=== PATIENT | male | born 1960 | race Caucasian/White ===

== ENCOUNTER 2024-12-15 13:22 | Inpatient (IN) | payer OTHER, SELFPAY ==
[2024-12-15 13:31] VITALS: BP 148/93; PULSE 76; RESP 20; TEMP 37; O2SAT 97; BMI 46.2
--- NOTE | 2024-12-15 13:45 | PM.GSCN ---
History of Present Illness Consult details Date Seen: 12/15/24 Consult date: 12/15/24 Narrative: Patient presented to his primary care provider at the [facility] clinic with concerning redness and swelling of his right lower extremity. He 1st noticed redness about 3 days ago. He denies any significant pain to the area. With the redness getting worse it prompted him to come in. He does have a history of type 2 diabetes, hemoglobin A1c was last 7.3. He has had infections of the soft tissue in the past, but never in this area. He denies any trauma to the area. He owns a cat and does think that the cat scratched him on his legs earlier this week. Denies any fevers at home. Comorbidity of morbid obesity. Patient does have a history of a total knee replacement in 2019 on that right side with reported hardware in place. Review of Systems Status of ROS: Reports: 10 or more systems reviewed and unremarkable except as noted in History and below PFSH PFS Surgical History (Updated 07/24/22 @ 17:54 by Ina Shirley ~ [facility], [facility]) History of surgery (07/06/19) ?Z98.890 - Other specified postprocedural states (ICD-10) H/O inguinal hernia repair (~1979) ?Z98.890 - Other specified postprocedural states (ICD-10) ?Z87.19 - Personal history of other diseases of the digestive system (ICD-10) History of cholecystectomy (~1989) ?Z90.49 - Acquired absence of other specified parts of digestive tract (ICD-10) History of total right knee replacement (09/06/19) ?Z96.651 - Presence of right artificial knee joint (ICD-10) Family History (Updated 07/24/22 @ 17:55 by Ina Shirley ~ [facility], [facility]) Brother Diabetes Social History (Updated 07/30/22 @ 10:03 by Ina Shirley ~ [facility], [facility]) What is your current living situation?: I presently have a place to live Problems where you live: no known problems Problems where you live details: N/A In the past 12 months, utilities in danger of being shut off: no In past 12 months, lack of transportation kept you from medical appts, meetings, work, or getting things needed for daily living: no In the past 12 mos, have been you worried that your food would run out before you had money to buy more?: never true In the past 12 mos, the food you bought just didn't last and you didn't have money to buy more?: never true Highest level of school completed/degree received: Associate degree: occupational, technical, vocational program Smoking Status: Never smoker Do you use any of these nicotine containing products: None Second hand tobacco smoke exposure: No How often do you have a drink containing alcohol: never AUDIT-C Alcohol total score: 0 Non-prescribed substance use: denies use Caffeine: Yes How often does anyone, including family, friends and others, physically hurt you: never How often does anyone, including family, friends and others, insult or talk down to you: never How often does anyone, including family, friends and others, threaten you with harm: never How often does anyone, including family, friends and others, scream or curse at you: never service: No Meds Home Medications and Allergies Home Medications ?Medication ?Instructions ?Recorded ?Confirmed ?Type amoxicillin 500 mg capsule 2,000 mg PO ONCE prior to dental 07/24/22 12/15/24 History work atorvastatin 20 mg tablet 20 mg PO DAILY 07/24/22 12/15/24 History aspirin 81 mg tablet,delayed 81 mg PO DAILY 07/30/22 12/15/24 History release multivitamin 1 tab PO DAILY 07/30/22 12/15/24 History zinc sulfate 50 mg zinc (220 mg) 50 mg PO DAILY 07/30/22 07/30/22 History capsule insulin glargine 100 unit/mL (3 45 - 50 unit subcut QPM 12/15/24 12/15/24 History mL) subcutaneous pen (Lantus Solostar U-100 Insulin) insulin lispro-aabc 100 unit/mL 6 - 8 unit subcut QID 12/15/24 12/15/24 History subcutaneous pen (Lyumjev KwikPen U-100 Insulin) semaglutide 1 mg/dose (4 mg/3 mL) 1 mg subcut QWEEK 12/15/24 12/15/24 History subcutaneous pen injector (Ozempic) Allergies Allergy/AdvReac Type Severity Reaction Status Date / Time morphine Allergy burned Verified 07/30/22 10:06 throat Exam Narrative: Exam Narrative: General: Alert and oriented, no acute distress. Nontoxic Respiratory: Equal breath rise bilaterally, maintained on room air CV: Well perfused Extremities: Right lower extremity with swelling below the knee. Large area of erythema and induration on the anterior aspect of the gerard. Approximately 3 cm area of fluctuance noted, no active drainage or open areas. No swelling of the knee joint or pain with flexion and extension. Const: Vital Signs, click to edit/add: Vital Signs - 24 hr 12/15/24 13:31 Temperature 98.6 F Pulse Rate [Pulse Oximeter] 76 Respiratory Rate 20 Blood Pressure [Ri ght Arm] 148/93 H Pulse Oximetry 97 Oxygen Delivery Me thod Room Air Results Labs Labs: No new labs. Progress Note:A&P Assessment and plan (1) Cellulitis of right leg: Status: Acute Assessment and Plan: Patient with evidence of right lower extremity cellulitis, as well as associated hematoma and abscess. Ultrasound imaging was obtained at the [facility] clinic with 2 pretibial subcutaneous collections along the anterior aspect of the right calf. The fluid collections measure 6.4 cm (more solid in appearance and consistent with a hematoma) and 3.8 cm (concerning for abscess). The infection does not appear to involve the knee joint, but of note patient does have a history of a total knee replacement with hardware in place. He is at increased risk for severe infection and poor wound healing given his morbid obesity and type 2 diabetes. Recommend obtaining CBC, CMP and CRP. Start IV antibiotics, broad-spectrum. Will plan to take patient to the operating room tomorrow for incision and drainage of the leg. If there is evidence of extending erythema, swelling of the knee or increasing pain would recommend a CT scan and consider an orthopedic surgery consult. -IV antibiotics, Zosyn and vancomycin order -CBC, CMP and CRP -NPO at midnight
--- NOTE | 2024-12-15 14:55 | P.IMHP_ITS ---
Hospitalist- H&P: HPI History of Present Illness Date Seen: 12/15/24 Chief complaint: direct admit Narrative: Roque Sosa is a 64 year old male with IDDM2 who was directly admitted to the hospital or from the clinic today after presenting with right lower extremity edema and erythema. He started noting pain and edema to his right lower extremity on 12/11, followed by erythema over the area. No known injury or inciting incident, does have a cat but no obvious recent scratches. No fevers, no drainage. Hasn't been able to put on his compression socks 11/28 edema and discomfort. Saw PCP in clinic today, ultrasound obtained which demonstrated R calf cellulit is, two fluid collections concerning for abscess. Dr. Zuniga of General Surgery was consulted in clinic and recommended admission for IV antibiotics and surgical intervention 12/16/24. Histories updated below. Dr. Holland at [facility] is PCP. No history of anesthetic or surgical complications in the past. Review of Systems Narrative: - no fevers - no nausea or vomiting - no chest pain [facility] Medical History (Updated 12/15/24 @ 15:29 by Cristina Casey MD) Health care directive on file (08/31/19) ?Z78.9 - Other specified health status (ICD-10) Hypercholesteremia ?E78.00 - Pure hypercholesterolemia, unspecified (ICD-10) Osteoarthritis of left knee ?M17.12 - Unilateral primary osteoarthritis, left knee (ICD-10) Insulin dependent type 2 diabetes mellitus ?E11.9 - Type 2 diabetes mellitus without complications (ICD-10) ?Z79.4 - FPC (current) use of insulin (ICD-10) Surgical History (Updated 07/24/22 @ 17:54 by Ina Shirley ~ [facility], [facility]) History of surgery (07/06/19) ?Z98.890 - Other specified postprocedural states (ICD-10) H/O inguinal hernia repair (~1979) ?Z98.890 - Other specified postprocedural states (ICD-10) ?Z87.19 - Personal history of other diseases of the digestive system (ICD-10) History of cholecystectomy (~1989) ?Z90.49 - Acquired absence of other specified parts of digestive tract (ICD- 10) History of total right knee replacement (09/06/19) ?Z96.651 - Presence of right artificial knee joint (ICD-10) Family History (Updated 07/24/22 @ 17:55 by Ina Shirley ~ [facility], [facility]) Brother Diabetes Social History (Updated 12/15/24 @ 15:16 by Cristina Casey MD) Narrative: Lives independently, works in [employer] at [employer]. Nonsmoker, no ETOH use. Neighbor/friend Jacki Carey would be MDM if needed. Full Code status. What is your current living situation?: I presently have a place to live Problems where you live: no known problems Problems where you live details: N/A In the past 12 months, utilities in danger of being shut off: no In past 12 months, lack of transportation kept you from medical appts, meetings, work, or getting things needed for daily living: no In the past 12 mos, have been you worried that your food would run out before y ou had money to buy more?: never true In the past 12 mos, the food you bought just didn't last and you didn't have money to buy more?: never true Highest level of school completed/degree received: Associate degree: occupational, technical, vocational program Smoking Status: Never smoker Do you use any of these nicotine containing products: None Second hand tobacco smoke exposure: No How often do you have a drink containing alcohol: never AUDIT-C Alcohol total score: 0 Non-prescribed substance use: denies use Caffeine: Yes How often does anyone, including family, friends and others, physically hurt you : never How often does anyone, including family, friends and others, insult or talk down to you: never How often does anyone, including family, friends and others, threaten you with harm: never How often does anyone, including family, friends and others, scream or curse at you: never service: No Meds Home Medications and Allergies Home Medications ?Medication ?Instructions ?Recorded ?Confirmed ?Type amoxicillin 500 mg capsule 2,000 mg PO ONCE prior to dental 07/24/22 12/15/24 History work atorvastatin 20 mg tablet 20 mg PO DAILY 07/24/22 12/15/24 History aspirin 81 mg tablet,delayed 81 mg PO DAILY 07/30/22 12/15/24 History release multivitamin 1 tab PO DAILY 07/30/22 12/15/24 History zinc sulfate 50 mg zinc (220 mg) 50 mg PO DAILY 07/30/22 07/30/22 History capsule insulin glargine 100 unit/mL (3 45 - 50 unit subcut QPM 12/15/24 12/15/24 History mL) subcutaneous pen (Lantus Solostar U-100 Insulin) insulin lispro-aabc 100 unit/mL 6 - 8 unit subcut QID 12/15/24 12/15/24 History subcutaneous pen (Lyumjev KwikPen U-100 Insulin) semaglutide 1 mg/dose (4 mg/3 mL) 1 mg subcut QWEEK 12/15/24 12/15/24 History subcutaneous pen injector (Ozempic) Home Medication Comments: Takes Ozempic on Sundays, last dose was 12/05/24 (missed it 12/12/24) Takes 35-40U of Glargine pending BG, uses SSI for meals Has Freestyle Danielle for monitoring Allergies Allergy/AdvReac Type Severity Reaction Status Date / Time morphine Allergy burned Verified 07/30/22 10:06 throat Exam Narrative: Exam Narrative: GEN: Alert and oriented, nontoxic. Sitting comfortably in bedside chair and speaking in full sentences HEENT: EOMIs bilaterally, no scleral icterus CV: RRR, No concerning murmurs R: LCTA bilaterally without concerning wheezing Ext: Erythema + edema RLE, no open areas, no drainage. Superior aspect is indurated and fluctuant, + ttp. Erythema does not extend to the foot nor into the patellar region, outlined by nursing staff Skin: No other concerning skin lesions or rashes on exposed skin Neuro: Nonfocal Psych: Appropriate Const: Vital Signs, click to edit/add: Vital Signs - 24 hr 12/15/24 13:31 Temperature 98.6 F Pulse Rate [Pulse Oximeter] 76 Respiratory Rate 20 Blood Pressure [Ri ght Arm] 148/93 H Pulse Oximetry 97 Oxygen Delivery Me thod Room Air Assessment and Plan Assessment and plan (1) Cellulitis of right leg: Problem comment: - high risk for complications given IDDM2 and prosthetic joint - labs ordered including blood culture, initiate Zosyn and Vancomycin 12/15 - h/o R knee replacement, currently there is no clinical concern for involvement of this area, continue to follow - surgery 12/16, NPO at midnight Status: Acute (2) Insulin dependent type 2 diabetes mellitus: Problem comment: - last outpatient A1C 7.3, wears Freestyle Danielle - continue HS Glargine + SSI Status: Acute Plan - per above - requires inpatient admission given severe cellulitis + abscess, history of prosthetic joint proximal to infected area, and IDDM2 with high risk for complications - Full Code
[2024-12-15 15:00] VITALS: BP 144/64; PULSE 83; RESP 20; TEMP 36.9; O2SAT 96
[2024-12-15] MEDS: PIPERACILLIN/TAZOBACTAM 3.375 GM in 0.9 % SODIUM CHLORIDE Mini-bag 100 ML IVPB ×2 (15:04→20:15)
[2024-12-15 15:16] LABS: Basophils Absolute Auto 0.03 K/uL (0.00-0.30); Basophils Percent Auto 0.4 % (0.0-3.0); Eosinophils Absolute Auto 0.14 K/uL (0.00-0.50); Eosinophils Percent Auto 2.1 % (0.0-7.0); Hematocrit 38.9 % (37.0-53.0); Hemoglobin* 12.8 gm/dL (13.5-17.5); Immature Granulocytes Abs Auto 0.06 K/uL (0.00-0.30); Immature Granulocytes Pct Auto 0.9 %; Lymphocytes Absolute Auto 1.63 K/uL (0.90-2.90); Lymphocytes Percent Auto 24.4 % (20-44); Mean Corpuscular HGB Conc 33 gm/dL (32-36); Mean Corpuscular Hemoglobin 30 pg (26-34); Mean Corpuscular Volume 92 fL (80-100); Monocytes Percent Auto 8.4 % (0.0-11.0); Neutrophils Absolute Auto 4.26 K/uL (1.7-7.0); Neutrophils Percent Auto 63.8 % (42.0-72.0); Platelet Count* 242 K/uL (140-440); RDW Coefficient of Variation % 12.9 % (11.5-15.5); Red Blood Count 4.25 m/uL (4.30-5.90); White Blood Count* 6.68 K/uL (4.50-11.00)
[2024-12-15 15:18] LABS: Slide Review Reflex No
[2024-12-15 15:24] LABS: Albumin* 3.8 g/dL (3.3-5.0); Chloride* 99 mmol/L (96-114)
[2024-12-15 15:25] LABS: Potassium* 4.2 mmol/L (3.6-5.1); Sodium* 134 mmol/L (135-149)
[2024-12-15 15:27] LABS: Alkaline Phosphatase* 74 U/L (40-150); Anion Gap 10 mEq/L (7-15); Aspartate Amino Transferase* 23 U/L (12-35); Bilirubin Total* 0.7 mg/dL (0.1-1.5); Carbon Dioxide* 25 mmol/L (20-32); Creatinine* 0.8 mg/dL (0.5-1.5); Est. Creatinine Clearance* 90.37; Estimated Glomerular Filt Rate 99 ml/min; Total Protein* 6.4 g/dL (6.0-8.3)
[2024-12-15 15:28] LABS: Alanine Aminotransferase* 35 U/L (4-50); Blood Urea Nitrogen* 15 mg/dL (7-30); Calcium* 8.5 mg/dL (8.4-10.6); Glucose* 222 mg/dL (60-115)
[2024-12-15 15:30] LABS: C Reactive Protein* 3.9 mg/dL (0.5-1.0)
[2024-12-15] MEDS: VANCOMYCIN 2 GM/400 ML 2 GM/400 ML PIGGYBACK IVPB (16:00)
[2024-12-15] MEDS: 0.9 % SODIUM CHLORIDE 250 ml IV (16:00)
[2024-12-15] MEDS: INSULIN ASPART 100 UNIT/ML 14 UNIT SUBCUT (18:43)
[2024-12-15] MEDS: INSULIN GLARGINE,HUM.REC.ANLOG 100 UNIT/ML INSULN.PEN SUBCUT (18:45)
[2024-12-15] MEDS: INSULIN ASPART 100 UNIT/ML SUBCUT ×2 (18:46→21:05)
[2024-12-15 19:00] VITALS: BP 134/86; PULSE 93; RESP 18; TEMP 37; O2SAT 95
[2024-12-15] MEDS: SODIUM CHLORIDE 0.9 % (FLUSH) 10 ML SYRINGE 5 ML IVF (20:16)
[2024-12-15 23:00] VITALS: BP 158/93; PULSE 78; RESP 18; TEMP 37.2; O2SAT 98
[2024-12-16] VITALS (14 sets, daily range): BP systolic 115–145; BP diastolic 59–88; PULSE 63–85; RESP 12–19; TEMP 36.4–37.4; O2SAT 92–99
[2024-12-16] MEDS: PIPERACILLIN/TAZOBACTAM 3.375 GM in 0.9 % SODIUM CHLORIDE Mini-bag 100 ML IVPB ×4 (02:22→21:09)
--- NOTE | 2024-12-16 06:32 | PC.NURSE ---
End of shift: AxOx4, cooperative, pleasant. VSS on RA. Pt indep in room using bathroom. NPO began at midnight, tolerating well. Pt denies pain. LLE marked from previous nurse appears to be receding. Site is red and warm to touch. Pt able to sleep for majority of the shift. Pt appears resting with call light in reach.
[2024-12-16 06:48] LABS: Basophils Absolute Auto 0.04 K/uL (0.00-0.30); Basophils Percent Auto 0.6 % (0.0-3.0); Eosinophils Absolute Auto 0.19 K/uL (0.00-0.50); Hematocrit 38.5 % (37.0-53.0); Hemoglobin* 12.6 gm/dL (13.5-17.5); Immature Granulocytes Abs Auto 0.03 K/uL (0.00-0.30); Immature Granulocytes Pct Auto 0.5 %; Lymphocytes Absolute Auto 1.58 K/uL (0.90-2.90); Lymphocytes Percent Auto 24.5 % (20-44); Mean Corpuscular HGB Conc 33 gm/dL (32-36); Mean Corpuscular Hemoglobin 30 pg (26-34); Mean Corpuscular Volume 92 fL (80-100); Neutrophils Absolute Auto 4.02 K/uL (1.7-7.0); Neutrophils Percent Auto 62.4 % (42.0-72.0); Platelet Count* 260 K/uL (140-440); RDW Coefficient of Variation % 12.8 % (11.5-15.5); Red Blood Count 4.19 m/uL (4.30-5.90); White Blood Count* 6.44 K/uL (4.50-11.00)
[2024-12-16 06:52] LABS: Slide Review Reflex No
[2024-12-16 07:03] LABS: Chloride* 100 mmol/L (96-114); Sodium* 135 mmol/L (135-149)
[2024-12-16 07:06] LABS: Anion Gap 8 mEq/L (7-15); Blood Urea Nitrogen* 13 mg/dL (7-30); Carbon Dioxide* 27 mmol/L (20-32); Creatinine* 0.9 mg/dL (0.5-1.5); Est. Creatinine Clearance* 90.37; Estimated Glomerular Filt Rate 96 ml/min; Glucose* 137 mg/dL (60-115)
[2024-12-16 07:07] LABS: Calcium* 8.3 mg/dL (8.4-10.6)
[2024-12-16] MEDS: ATORVASTATIN CALCIUM 10 MG TABLET 20 MG PO (08:35)
[2024-12-16] MEDS: SODIUM CHLORIDE 0.9 % (FLUSH) 10 ML SYRINGE 5 ML IVF ×2 (08:36→21:09)
[2024-12-16] MEDS: VANCOMYCIN 1.5 GM/300 ML 1.5 GM/300 ML PIGGYBACK IVPB ×2 (09:24→22:16)
--- NOTE | 2024-12-16 10:32 | P.IMPN_ITS ---
Progress Note: A&P Assessment and plan (1) Cellulitis of right leg: Problem details: - high risk for complications given IDDM2 and prosthetic joint - labs ordered including blood culture -pending - continue Zosyn and Vancomycin 12/15 - h/o R knee replacement, currently there is no clinical concern for involvement of this area, continue to follow - to OR 12/[address] Zuniga for I&D, washout Status: Acute (2) Insulin dependent type 2 diabetes mellitus: Problem details: - last outpatient A1C 7.3, wears Freestyle Danielle, ok to use readings - hold tid Aspart as NPO - home dose Lantus is 40 units qPM, will decrease to 20 units tonight and adjust accordingly - insulin sliding scale, cautionary while NPO - also on Ozempic Status: Acute (3) Hypercholesteremia: Problem details: - on statin Status: Acute Time Spent With Patient Total time spent: Today I spent 45 minutes seeing the patient, discussing the patient with ER staff, reviewing Expanse and Epic notes/diagnostics, discussing the care plan with our team that includes social work, PT/OT, pharmacy, RT, senior care and documenting my impressions and plan in the medical record. Subjective Date Seen: 12/16/24 Interval history: Patient is seen sitting up in bed this morning. Reports no significant change overnight. Describes discomfort as more of an annoying. Specifically denies any knee, joint pain at rest, with palpation, with movement, or with weight- bearing. Remains afebrile. Vitally stable. Is NPO, awaiting surgery this afternoon. Exam Narrative: Exam Narrative: PHYSICAL EXAM General: Pleasant, conversant, NAD HEENT: Normocephalic, atraumatic, sclera white, EOMI, oral mucosa moist Cardiovascular: RRR, S1S2. No pitting edema Pulmonary: CTA bilaterally without rhonchi, rales, expiratory wheezes. No dyspnea Abdominal: Soft, nondistended, NTTP Neurological: Alert, answering questions appropriately, cranial nerves intact, no focal findings Extremities: RLE with bright, deep erythema/rubor. Significant edema. Tender over anterior lower leg. Full active range of motion of knee without pain, no tenderness on palpation over the joint. Neurovascularly intact Skin: Warm, dry. Const: Vital Signs, click to edit/add: Vital Signs - 24 hr 12/15/24 13:31 12/15/24 15:00 12/15/24 15:00 Temperature 98.6 F Pulse Rate [Pulse Oximeter] 76 Respiratory Rate 20 20 20 Blood Pressure [Ri ght Arm] 148/93 H Pulse Oximetry 97 96 Oxygen Delivery Me thod Room Air Room Air 12/15/24 15:00 12/15/24 19:00 12/15/24 23:00 Temperature 98.4 F 98.6 F Pulse Rate [Pulse Oximeter] 83 93 Respiratory Rate 20 18 18 Blood Pressure [Ri ght Arm] 144/64 H 134/86 Pulse Oximetry 96 95 98 Oxygen Delivery Me thod Room Air Room Air Room Air 12/15/24 23:00 12/16/24 02:31 12/16/24 07:40 Temperature 98.9 F 99 F Pulse Rate [Pulse Oximeter] 78 76 76 Respiratory Rate 18 18 18 Blood Pressure [Ri ght Arm] 158/93 H 130/76 Pulse Oximetry 98 95 Oxygen Delivery Me thod Room Air Room Air 12/16/24 07:40 12/16/24 07:40 Temperature 98.2 F Pulse Rate [Pulse Oximeter] 73 Respiratory Rate 18 18 Blood Pressure [Ri ght Arm] 115/78 Pulse Oximetry 96 96 Oxygen Delivery Me thod Room Air Room Air Labs Labs: Laboratory Results - last 24 hr 12/15/24 12/16/24 15:03 06:20 WBC 6.68 6.44 RBC 4.25 L 4.19 L Hgb 12.8 L 12.6 L Hct 38.9 38.5 MCV 92 92 MCH 30 30 MCHC 33 33 RDW Coeff of Yaw 12.9 12.8 Plt Count 242 260 Neut % (Auto) 63.8 62.4 Lymph % (Auto) 24.4 24.5 Kingfisher % (Auto) 8.4 9.0 Eos % (Auto) 2.1 3.0 Baso % (Auto) 0.4 0.6 Neut # (Auto) 4.26 4.02 Lymph # (Auto) 1.63 1.58 Kingfisher # (Auto) 0.60 0.60 Eos # (Auto) 0.14 0.19 Baso # (Auto) 0.03 0.04 Abs Immat Gran (auto) 0.06 0.03 Imm/Tot Granulo (auto) 0.9 0.5 Sodium 134 L 135 Potassium 4.2 4.0 Chloride 99 100 Carbon Dioxide 25 27 Anion Gap 10 8 BUN 15 13 Creatinine 0.8 0.9 Estimated Creat Clear 90.37 90.37 Estimated GFR 99 96 Glucose 222 H 137 H Calcium 8.5 8.3 L Total Bilirubin 0.7 AST 23 ALT 35 Alkaline Phosphatase 74 C-Reactive Protein 3.9 H Total Protein 6.4 Albumin 3.8
--- NOTE | 2024-12-16 13:11 | P.ANES_ITS ---
Anesthesia Charges Start Date/Time Anesthesia Start Date: 12/16/24 Anesthesia Start Time: 12:25 Stop Date/Time Anesthesia Stop Date: 12/16/24 Anesthesia Stop Time: 13:15 Coding CPT Codes CPT Codes: ANESTH SKIN EXT/PER/ATRUNK - 36297 ([id number]) P3 - PATIENT W/SEVERE SYS DISEASE, QK - SENIOR JAVA DEVELOPER 2-4 CNCRNT ANES PROC, QX - RIGGING AND CONTROLS AIRCRAFT MECHANIC SVC W/ MD MED DIRECTION
--- NOTE | 2024-12-16 13:11 | W.ANESCHARGE ---
Anesthesia Charges Start Date/Time Anesthesia Start Date: 12/16/24 Anesthesia Start Time: 12:25 Stop Date/Time Anesthesia Stop Date: 12/16/24 Anesthesia Stop Time: 13:15 Coding CPT Codes CPT Codes: ANESTH SKIN EXT/PER/ATRUNK - 81775 ([id number]) P3 - PATIENT W/SEVERE SYS DISEASE, QK - WETLAND SCIENTIST 2-4 CNCRNT ANES PROC, QX - MULE TENDER SVC W/ MD MED DIRECTION
--- NOTE | 2024-12-16 13:17 | P.ANES_ITS ---
Anesthesia Charges Start Date/Time Anesthesia Start Date: 12/16/24 Anesthesia Start Time: 12:25 Stop Date/Time Anesthesia Stop Date: 12/16/24 Anesthesia Stop Time: 13:15 Coding CPT Codes CPT Codes: ANESTH SKIN EXT/PER/ATRUNK - 40940 ([id number]) P3 - PATIENT W/SEVERE SYS DISEASE, QK - PAYROLL ASSOCIATE 2-4 CNCRNT ANES PROC, QX - BLOCK STACKER SVC W/ MD MED DIRECTION
--- NOTE | 2024-12-16 13:17 | W.ANESCHARGE ---
Anesthesia Charges Start Date/Time Anesthesia Start Date: 12/16/24 Anesthesia Start Time: 12:25 Stop Date/Time Anesthesia Stop Date: 12/16/24 Anesthesia Stop Time: 13:15 Coding CPT Codes CPT Codes: ANESTH SKIN EXT/PER/ATRUNK - 91036 ([id number]) P3 - PATIENT W/SEVERE SYS DISEASE, QK - REIMBURSEMENT SPEC 2-4 CNCRNT ANES PROC, QX - THREAD TRIMMER SVC W/ MD MED DIRECTION
--- NOTE | 2024-12-16 13:50 | PM.GSPRC ---
Operative Note Date of procedure: 12/16/24 Pre-op diagnosis: Infected hematoma of the right lower extremity with associated cellulitis Post-op diagnosis: Same Type of Procedure: Incision and drainage of right lower extremity infected hematoma Indications: Patient presented to his primary care provider with evidence of severe infection to the right lower extremity. Clinical exam and workup was concerning for large abscess, thought to be a secondarily infected hematoma. Risks and benefits of incision and drainage in the operating room were discussed at length with the patient. Risks and benefits of operative intervention were discussed at length with the patient. Risks included but was not limited to: Bleeding, risk of damage to surrounding structures, possible need for additional procedures and postoperative complications such as pneumonia, pulmonary emboli or CO. All questions and concerns were addressed with the patient agreeing to proceed. Procedure Description: After discussing the risks and benefits of the procedure, the patient signed informed consent.? The operative site was marked and the patient was brought to the operating room and placed on the operating table in supine position.? Care was taken to pad the patient's pressure points.?? The patient was then given sedation by anesthesia.?? The operative site was then prepped and draped in the usual sterile fashion.? A time-out was then performed. Local anesthetic of 0.5% Marcaine with 1% lidocaine was used to anesthetize the field. Approximately 4 cm inferior to the knee on the anterior gerard was a large area of fluctuance. An incision was made sharply with large amount of purulent material and blood clot removed. A sample was sent for culture. The incision was then carried inferiorly to allow for adequate drainage. Using blunt dissection with my finger inflammatory bridges were taken down and the subcutaneous tissue was palpated to ensure no undrained fluid pockets. The resulting incision measured 7 x 2 x 2 cm in depth with undermining of 3 cm superior, 4 cm medial, 3 cm inferior and 2 cm lateral. A pulse operations professional was used to clean out the cavity with 3 L warm saline. Hemostasis was then assured with electrocautery. The wound was packed with Vashe soaked Kerlix and wrapped with a clean Kerlix roll and Yfn bandage. nd transported to the recovery area in stable condition. ? The patient tolerated the procedure well. Findings: Infected hematoma of the right anterior gerard. Anesthesia: MAC and local Surgeon: Jocelin Zuniga MD Estimated blood loss (mL): 5 Additional Specimen Information: Wound culture, right leg. Condition: stable Disposition: PACU
[2024-12-16] MEDS: 0.9 % SODIUM CHLORIDE 250 ml IV (14:52)
[2024-12-16] MEDS: INSULIN GLARGINE,HUM.REC.ANLOG 100 UNIT/ML INSULN.PEN 20 UNIT SUBCUT (17:37)
[2024-12-16] MEDS: INSULIN ASPART 100 UNIT/ML SUBCUT (17:38)
[2024-12-16] MEDS: INSULIN ASPART 100 UNIT/ML 14 UNIT SUBCUT (17:39)
--- NOTE | 2024-12-16 19:01 | PC.NURSE ---
Shift note: The pt has been pleasant and cooperative; alert and oriented x4; denied chest pain and short of breath; Spo2 has been in the 90s in RA. The pt had I & D today to right lower leg; the dressing to lower leg has been clean, dry, and intact. Denied any acute distress throughout the shift.
--- NOTE | 2024-12-16 19:38 | PC.NURSE ---
Discharge summary: The pt had been c/o of nausea; 4 mg of Zofran given x2; the pt stated the nausea getting better. Reported mild abdominal pain- no pain medication requested by the patient. The pt urinated before discharge time. Eat regular diet his daughter bought- and tolerated with mild nausea. Discharge instruction and follow up appointment were reviewed with the patient and pt's daughter- they both verbalize understaging the instructions . The lap incision sites x4 steri strips intact with dry old blood. The pt appeared without any acute distress at discharge time.
[2024-12-17] VITALS (8 sets, daily range): BP systolic 133–152; BP diastolic 74–85; PULSE 64–98; RESP 14–20; TEMP 36.8–37.4; O2SAT 94–98
[2024-12-17] MEDS: PIPERACILLIN/TAZOBACTAM 3.375 GM in 0.9 % SODIUM CHLORIDE Mini-bag 100 ML IVPB ×4 (03:09→20:22)
[2024-12-17 06:20] LABS: Hematocrit 37.2 % (37.0-53.0); Hemoglobin* 12.2 gm/dL (13.5-17.5); Mean Corpuscular HGB Conc 33 gm/dL (32-36); Mean Corpuscular Hemoglobin 30 pg (26-34); Mean Corpuscular Volume 92 fL (80-100); Platelet Count* 284 K/uL (140-440); Red Blood Count 4.04 m/uL (4.30-5.90); White Blood Count* 5.93 K/uL (4.50-11.00)
[2024-12-17 06:22] LABS: Slide Review Reflex No
[2024-12-17 06:32] LABS: Chloride* 103 mmol/L (96-114); Potassium* 4.3 mmol/L (3.6-5.1); Sodium* 135 mmol/L (135-149)
[2024-12-17 06:35] LABS: Creatinine* 0.9 mg/dL (0.5-1.5); Est. Creatinine Clearance* 90.37; Estimated Glomerular Filt Rate 96 ml/min
[2024-12-17 06:36] LABS: Anion Gap 6 mEq/L (7-15); Blood Urea Nitrogen* 13 mg/dL (7-30); Calcium* 8.1 mg/dL (8.4-10.6); Carbon Dioxide* 26 mmol/L (20-32); Glucose* 144 mg/dL (60-115)
[2024-12-17 06:39] LABS: C Reactive Protein* 3.6 mg/dL (0.5-1.0)
--- NOTE | 2024-12-17 07:06 | PC.NURSE ---
Shift note ([id number]): Patient pleasant, alert and oriented. Denied pain. Ambulates independently in room. Yfn wrap and dressing intact to right lower leg. Temp 99.0 during night. BS 140 at HS.?
[2024-12-17] MEDS: INSULIN ASPART 100 UNIT/ML 14 UNIT SUBCUT ×3 (08:48→18:25)
[2024-12-17] MEDS: INSULIN ASPART 100 UNIT/ML SUBCUT ×2 (08:48→20:21)
[2024-12-17] MEDS: ATORVASTATIN CALCIUM 10 MG TABLET 20 MG PO (08:58)
[2024-12-17] MEDS: VANCOMYCIN 1.5 GM/300 ML 1.5 GM/300 ML PIGGYBACK IVPB ×2 (10:22→21:19)
[2024-12-17] MEDS: HYDROmorphone 0.5 mg/0.5 ml inj IVP (11:37)
[2024-12-17] MEDS: SODIUM CHLORIDE 0.9 % (FLUSH) 10 ML SYRINGE 5 ML IVF ×2 (12:00→20:22)
--- NOTE | 2024-12-17 12:12 | PM.GSPN ---
Subjective Subjective Date Seen: 12/17/24 Interval history: Roque is doing well today. Pain is minimal at rest. The dressing saturated through and so the outer dressing was changed. Wound VAC was ordered yesterday. Exam Narrative: Exam Narrative: General: No acute distress Extremities: Left lower extremity mildly swollen with hemosiderin changes. Right lower extremity: With 3+ edema. Erythema noted on gerard, surrounding wound. This is reportedly improved from yesterday, however he still is present on most of patient's lower leg from the ankle to the knee. Dressing to the wound changed today. Wound base is clean without exudate. Const: Vital Signs, click to edit/add: Vital Signs - 24 hr 12/16/24 13:10 12/16/24 13:15 12/16/24 13:20 Temperature 97.6 F Pulse Rate 67 66 72 Pulse Rate [Pulse Oximeter] Pulse Rate [Right Pulse Oximeter] Respiratory Rate 12 12 12 Blood Pressure 127/69 145/73 H 130/75 Blood Pressure [Ri ght Arm] Pulse Oximetry 99 98 95 Oxygen Delivery Me thod OxyMask OxyMask Room Air Oxygen Flow Rate 8 8 12/16/24 13:28 12/16/24 13:30 12/16/24 13:45 Temperature 99.4 F Pulse Rate 68 Pulse Rate [Pulse Oximeter] Pulse Rate [Right Pulse Oximeter] 85 Respiratory Rate 12 12 12 Blood Pressure 139/66 Blood Pressure [Ri ght Arm] 131/81 140/85 H Pulse Oximetry 94 94 93 Oxygen Delivery Me thod Room Air Room Air Room Air Oxygen Flow Rate 12/16/24 14:00 12/16/24 14:30 12/16/24 16:44 Temperature Pulse Rate Pulse Rate [Pulse Oximeter] Pulse Rate [Right Pulse Oximeter] 63 64 64 Respiratory Rate 12 12 12 Blood Pressure Blood Pressure [Ri ght Arm] 136/85 133/78 Pulse Oximetry 94 95 Oxygen Delivery Me thod Room Air Room Air Oxygen Flow Rate 12/16/24 16:44 12/16/24 19:00 12/16/24 23:00 Temperature 98.8 F Pulse Rate Pulse Rate [Pulse Oximeter] Pulse Rate [Right Pulse Oximeter] 64 Respiratory Rate 12 18 Blood Pressure Blood Pressure [Ri ght Arm] 143/88 H Pulse Oximetry 95 97 Oxygen Delivery Me thod Room Air Room Air Room Air Oxygen Flow Rate 8 12/16/24 23:00 12/17/24 03:00 12/17/24 11:00 Temperature 98.6 F 99.0 F 98.5 F Pulse Rate Pulse Rate [Pulse Oximeter] 70 98 Pulse Rate [Right Pulse Oximeter] 78 72 Respiratory Rate 19 18 14 Blood Pressure Blood Pressure [Ri ght Arm] 131/59 L 138/74 140/79 H Pulse Oximetry 92 94 98 Oxygen Delivery Me thod Room Air Room Air Room Air Oxygen Flow Rate Labs/Imaging Labs Labs: White blood cell count normal Culture preliminarily growing group C strep. Sensitivities pending. Progress Note:A&P Assessment and plan (1) Insulin dependent type 2 diabetes mellitus: Status: Acute (2) Cellulitis of right leg: Status: Acute (3) Morbid obesity with BMI of 40.0-44.9, adult: Status: Acute Plan The patient is a 64-year-old male with a infected hematoma of the right gerard and associated cellulitis. There are still a fair amount of cellulitis of the patient is quite significantly clinically improved. I think that in the setting of diabetes it is best for him to stay for IV antibiotics for an additional day. As long as things are improved tomorrow he could discharge home with daily dressing changes. If his wound VAC were to arrive prior to then, I would discharge him home with a wound VAC and short-term follow-up. -discussed antibiotic choice with hospitalist. Will likely plan on oral penicillin or cephalosporin after discharge. -recommend wrapping leg from foot to knee to avoid tourniquet effect of swelling -continue IV antibiotics while inpatient -discussed with patient returning to work. He thinks he will be able to do his job with the wound VAC is he does not do a significant amount of lifting and does not stand on his feet all day. -also noted is a small noninfected wound on his right toe 2nd toe. Outpatient follow-up with podiatry and consideration for diabetic shoes recommended. -will also place a referral to Wound Clinic.
--- NOTE | 2024-12-17 12:32 | PM.IMPN1 ---
Progress Note: A&P Assessment and plan (1) Cellulitis of right leg: Problem details: - high risk for complications given IDDM2 and prosthetic joint - labs ordered including blood culture -NGTD - continue Zosyn and Vancomycin - h/o R knee replacement, currently there is no clinical concern for involvement of this area, continue to follow 12/17 POD#1 s/p Incision and drainage of right lower extremity infected hematoma, Dr. Zuniga (12/16). Will be followed by Dr. Martel this weekend -wound culture growing Group C strep (sent to [place] for sensitivities) -continue Zosyn and vancomycin, plan to transition to oral PCN V when ready for discharge -daily dressing changes with Yfn wrap, elevation -awaiting wound VAC -outpatient Wound Clinic referral made Status: Acute (2) Insulin dependent type 2 diabetes mellitus: Problem details: - last outpatient A1C 7.3, wears Freestyle Danielle, ok to use readings - hold tid Aspart as NPO - resumed post op - home dose Lantus is 40 units qPM, will decrease to 20 units tonight and adjust accordingly - insulin sliding scale, cautionary while NPO - also on Ozempic 12/17 will readjust insulin to home dosing as eating regularly now Status: Acute (3) Hypercholesteremia: Problem details: - on statin Status: Acute (4) Diabetic foot ulcer: Problem details: -chronic, not acutely worsened, right second dorsal toe -recommend outpatient follow-up with Podiatry Status: Acute Time Spent With Patient Total time spent: Today I spent 45 minutes seeing the patient, discussing the patient with ER staff, reviewing Expanse and Epic notes/diagnostics, discussing the care plan with our team that includes social work, PT/OT, pharmacy, RT, senior care and documenting my impressions and plan in the medical record. Subjective Date Seen: 12/17/24 Interval history: Patient is seen sitting up in a chair this morning. Reports feeling much better. Discomfort of right leg, which he called annoyance, has improved. Remains afebrile. Denies headache or dizziness. Denies chest pain or shortness of breath. Tolerated orals without nausea vomiting. Exam Narrative: Exam Narrative: PHYSICAL EXAM General: Pleasant, conversant, NAD Cardiovascular: RRR, pitting edema significant noted on admission Pulmonary: CTA bilaterally without rhonchi, rales, expiratory wheezes. No dyspnea on RA Neurological: Alert, answering questions appropriately Extremities: RLE erythema has improved but still present, still significantly edematous. No streaking. Tenderness over anterior lower leg improved. Full active range of motion of knee without pain, no tenderness on palpation over the joint. Neurovascularly intact. Also noted on admission, old scabbed ulcer dorsal aspect right 2nd toe, dry without drainage Skin: Warm, dry. Const: Vital Signs, click to edit/add: Vital Signs - 24 hr 12/16/24 13:10 12/16/24 13:15 12/16/24 13:20 Temperature 97.6 F Pulse Rate 67 66 72 Pulse Rate [Pulse Oximeter] Pulse Rate [Right Pulse Oximeter] Respiratory Rate 12 12 12 Blood Pressure 127/69 145/73 H 130/75 Blood Pressure [Ri ght Arm] Pulse Oximetry 99 98 95 Oxygen Delivery Me thod OxyMask OxyMask Room Air Oxygen Flow Rate 8 8 12/16/24 13:28 12/16/24 13:30 12/16/24 13:45 Temperature 99.4 F Pulse Rate 68 Pulse Rate [Pulse Oximeter] Pulse Rate [Right Pulse Oximeter] 85 Respiratory Rate 12 12 12 Blood Pressure 139/66 Blood Pressure [Ri ght Arm] 131/81 140/85 H Pulse Oximetry 94 94 93 Oxygen Delivery Me thod Room Air Room Air Room Air Oxygen Flow Rate 12/16/24 14:00 12/16/24 14:30 12/16/24 16:44 Temperature Pulse Rate Pulse Rate [Pulse Oximeter] Pulse Rate [Right Pulse Oximeter] 63 64 64 Respiratory Rate 12 12 12 Blood Pressure Blood Pressure [Ri ght Arm] 136/85 133/78 Pulse Oximetry 94 95 Oxygen Delivery Me thod Room Air Room Air Oxygen Flow Rate 12/16/24 16:44 12/16/24 19:00 12/16/24 23:00 Temperature 98.8 F Pulse Rate Pulse Rate [Pulse Oximeter] Pulse Rate [Right Pulse Oximeter] 64 Respiratory Rate 12 18 Blood Pressure Blood Pressure [Ri ght Arm] 143/88 H Pulse Oximetry 95 97 Oxygen Delivery Me thod Room Air Room Air Room Air Oxygen Flow Rate 8 12/16/24 23:00 12/17/24 03:00 12/17/24 07:00 Temperature 98.6 F 99.0 F Pulse Rate Pulse Rate [Pulse Oximeter] 70 Pulse Rate [Right Pulse Oximeter] 78 Respiratory Rate 19 18 14 Blood Pressure [facility] 131/59 L 138/74 Pulse Oximetry 92 94 95 Oxygen Delivery Me thod Room Air Room Air Room Air Oxygen Flow Rate 12/17/24 11:00 Temperature 98.5 F Pulse Rate Pulse Rate [Pulse Oximeter] 98 Pulse Rate [Right Pulse Oximeter] 72 Respiratory Rate 14 Blood Pressure Blood Pressure [[facility] Arm] 140/79 H Pulse Oximetry 98 Oxygen Delivery Me thod Room Air Oxygen Flow Rate Labs Labs: Laboratory Results - last 24 hr 12/17/24 06:00 WBC 5.93 RBC 4.04 L Hgb 12.2 L Hct 37.2 MCV 92 MCH 30 MCHC 33 Plt Count 284 Sodium 135 Potassium 4.3 Chloride 103 Carbon Dioxide 26 Anion Gap 6 L BUN 13 Creatinine 0.9 Estimated Creat Clear 90.37 Estimated GFR 96 Glucose 144 H Calcium 8.1 L C-Reactive Protein 3.6 H
[2024-12-17] MEDS: INSULIN GLARGINE,HUM.REC.ANLOG 100 UNIT/ML INSULN.PEN 40 UNIT SUBCUT (18:25)
--- NOTE | 2024-12-17 18:56 | PC.NURSE ---
End of Shift: Patient is pleasant and orientated, VSS on RA. No reports of pain in RLE. Krelix was changed 2x this shift due to I/D site drainage. The primary dressing was changed by Dr Martel. Wound Vac is here and will be placed tomorrow AM by Dr Martel. IV abx continued throughout the day. Up independently in his room. Appetite is excellent. Call light within reach. Regina RICHARDSON BSN
[2024-12-18] MEDS: PIPERACILLIN/TAZOBACTAM 3.375 GM in 0.9 % SODIUM CHLORIDE Mini-bag 100 ML IVPB ×2 (02:09→08:29)
[2024-12-18 02:11] VITALS: BP 140/89; PULSE 68; RESP 20; TEMP 37.1; O2SAT 94
--- NOTE | 2024-12-18 06:03 | PC.NURSE ---
Shift note: Patient is independent in room. Alert and oriented. CHRISTOS wrap to the right leg clean and dry. Vitally stable. Patient had adequate sleep.
[2024-12-18 06:46] LABS: Hematocrit 37.3 % (37.0-53.0); Hemoglobin* 12.2 gm/dL (13.5-17.5); Mean Corpuscular HGB Conc 33 gm/dL (32-36); Mean Corpuscular Hemoglobin 30 pg (26-34); Mean Corpuscular Volume 92 fL (80-100); Platelet Count* 286 K/uL (140-440); Red Blood Count 4.06 m/uL (4.30-5.90); White Blood Count* 5.51 K/uL (4.50-11.00)
[2024-12-18 07:00] LABS: Slide Review Reflex No
[2024-12-18 07:09] LABS: Chloride* 103 mmol/L (96-114); Sodium* 135 mmol/L (135-149)
[2024-12-18 07:11] LABS: Est. Creatinine Clearance* 90.37; Estimated Glomerular Filt Rate 85 ml/min
[2024-12-18 07:12] LABS: Anion Gap 5 mEq/L (7-15); Blood Urea Nitrogen* 12 mg/dL (7-30); Calcium* 8.2 mg/dL (8.4-10.6); Carbon Dioxide* 27 mmol/L (20-32); Glucose* 121 mg/dL (60-115)
[2024-12-18 07:54] VITALS: BP 139/93; PULSE 82; RESP 18; TEMP 36.3; O2SAT 95
[2024-12-18] MEDS: INSULIN ASPART 100 UNIT/ML 14 UNIT SUBCUT (08:29)
[2024-12-18] MEDS: ATORVASTATIN CALCIUM 10 MG TABLET 20 MG PO (08:30)
[2024-12-18] MEDS: SODIUM CHLORIDE 0.9 % (FLUSH) 10 ML SYRINGE 5 ML IVF (08:30)
[2024-12-18] MEDS: VANCOMYCIN 1.5 GM/300 ML 1.5 GM/300 ML PIGGYBACK IVPB (09:16)
--- NOTE | 2024-12-18 11:15 | PM.GSPN ---
Subjective Subjective Date Seen: 12/18/24 Interval history: Roque denies pain. No issues overnight. His wound VAC did arrive yesterday. He is afebrile. Exam Narrative: Exam Narrative: General: No acute distress Extremities: Right leg cellulitis and swelling have improved. Wound again appears clean at the base. No significant exudate. Const: Vital Signs, click to edit/add: Vital Signs - 24 hr 12/17/24 15:00 12/17/24 15:00 12/17/24 15:30 Temperature 98.4 F Pulse Rate [Right Pulse Oximeter] 64 Respiratory Rate 20 20 Blood Pressure [Ri ght Arm] 133/75 Pulse Oximetry 95 96 96 Oxygen Delivery Me thod Room Air Room Air Room Air Oxygen Flow Rate 8 12/17/24 19:00 12/17/24 22:32 12/17/24 23:00 Temperature 99.3 F 98.3 F Pulse Rate [Right Pulse Oximeter] 64 64 64 Respiratory Rate 20 20 20 Blood Pressure [Ri ght Arm] 148/84 H 152/85 H Pulse Oximetry 97 96 Oxygen Delivery Me thod Room Air Room Air Oxygen Flow Rate 12/17/24 23:00 12/18/24 02:11 12/18/24 07:54 Temperature 98.8 F Pulse Rate [Right Pulse Oximeter] 68 Respiratory Rate 20 18 Blood Pressure [Ri ght Arm] 140/89 H Pulse Oximetry 96 94 95 Oxygen Delivery Me thod Room Air Room Air Room Air Oxygen Flow Rate 12/18/24 07:54 Temperature 97.4 F L Pulse Rate [Right Pulse Oximeter] 82 Respiratory Rate 18 Blood Pressure [Ri ght Arm] 139/93 H Pulse Oximetry 95 Oxygen Delivery Me thod Room Air Oxygen Flow Rate Progress Note:A&P Assessment and plan (1) Diabetic foot ulcer: Status: Acute (2) Cellulitis of right leg: Status: Acute (3) Morbid obesity with BMI of 40.0-44.9, adult: Status: Acute (4) Leg wound, right: Status: Acute (5) Insulin dependent type 2 diabetes mellitus: Status: Acute Plan The patient is a 64-year-old male with a right lower extremity wound from infected hematoma in the setting diabetes. He underwent I and D on the . Cellulitis appears better today. Leg swelling is better today. Wound VAC was placed today without incident. Patient was given instructions on how to troubleshoot the wound VAC. okay to discharge home today on p.o. antibiotics with follow-up on Friday. -patient is agreeable with this plan.
--- NOTE | 2024-12-18 14:35 | P.DS_ITS ---
DS: Providers Provider Date Seen: 12/18/24 Date of admission: 12/15/24 13:22 Primary care physician: Hilda Holland DO Admitting Clinician: Sharon Javier MD Consults: 12/15/24 14:53 Consult to Physician [CONS] Routine Comment: Consulting Provider: Jocelin Zuniga Has provider been notified: Yes Attending Physician on discharge: Sharon Javier MD Date of Discharge: 12/18/24 DS: Diagnosis Discharge Diagnosis (1) Cellulitis of right leg: Status: Acute Problem details: - rec'd zosyn and vancomycin x 2.5 days - BC NGTD - wound culture is group C strep - awaiting sensitivities but will presume for discharge planning sensitive for pcn - DM and hx of knee replacement increase risk for complications, hematogenous spread 12/17 POD#2 s/p Incision and drainage of right lower extremity infected hematoma, Dr. Zuniga (12/16). Dr. Martel placed wound vac 12/18 -wound culture growing Group C strep (sent to [place] for sensitivities - pending at discharge) - Amoxil 875mg bid for five more days; 7 total of therapy on ABX (2) Leg wound, right: Status: Acute Problem details: wound vac placed; IV to oral antibiotics; discharged to wound care clinic (3) Insulin dependent type 2 diabetes mellitus: Status: Acute Problem details: - last outpatient A1C 7.3, wears Freestyle Danielle, ok to use readings - hold tid Aspart as NPO - resumed post op - home dose Lantus is 40 units qPM, will decrease to 20 units tonight and adjust accordingly - insulin sliding scale, cautionary while NPO - also on Ozempic 12/17 will readjust insulin to home dosing as eating regularly now (4) Morbid obesity with BMI of 40.0-44.9, adult: Status: Acute Problem details: BMI 44.1 DS: Summary Hospital Course Hospital Course: FINAL DIAGNOSIS/FOLLOW UP ISSUES: 1. Cellulitis and abscess of the right lower leg. No concern for involvement of the right prostatic knee joint. No hematogenous spread suspected. Treated with Zosyn and vanc until group C strep was isolated. This will presumably be covered by an oral penicillin at discharge. Amoxil 875 mg p.o. b.i.d. sent for a total 5 more doses, this will conclude 7 days of antibiotic therapy as well as I and D done by General surgery on 12/16. Wound VAC was also placed on 12/18 by General surgery. BRIEF HOSPITAL COURSE: Patient was admitted for 3 days. Synopsis of acute inpatient issues are outlined above. Chronic medical conditions with notable findings outlined above. DISCHARGE MEDICATIONS: See Reconciled list - SIGNIFICANT CHANGES: Were adding amoxicillin as described above. Other home meds were not adjusted and were continued at discharge. Specific instructions to the patient and follow-up are outlined below. REVIEW OF SYSTEMS No new chest pain or dyspnea Pain controlled No voiding difficulties Tolerating diet challenge PHYSICAL EXAM: CONSTITUTIONAL: Conversive, good historian. A/O. Knows setting and context. GENERAL: Well-developed and above ideal body weight, in no respiratory distress. VITAL SIGNS: see record. HEENT: Sclerae are anicteric. No petechiae. CARDIAC: rhythm is regular. There is no S3 or rub. No harsh murmurs. Extremities show trace edema with symmetrical pulses. PULM: good air entry with no wheeze. NEURO: Speech is fluent. A brief neurologic exam is negative. SKIN: Erythema has markedly receded. Edema is less. Wound base is clean without exudate. PSYCHIATRIC: Euthymic. DISPOSITION: Home with good wound care follow-up. Time spent on discharge 37 minutes. Status at Discharge Functional status at discharge: independent ambulation Overall status at discharge: patient is progressing back to baseline Time Spent with Patient Time attestation: Total time spent providing and/or coordinating discharge services: Exam Const: Vital Signs, click to edit/add: Vital Signs - 24 hr 12/17/24 15:00 12/17/24 15:00 12/17/24 15:30 Temperature 98.4 F Pulse Rate [Right Pulse Oximeter] 64 Respiratory Rate 20 20 Blood Pressure [Ri ght Arm] 133/75 Pulse Oximetry 95 96 96 Oxygen Delivery Me thod Room Air Room Air Room Air Oxygen Flow Rate 8 12/17/24 19:00 12/17/24 22:32 12/17/24 23:00 Temperature 99.3 F 98.3 F Pulse Rate [Right Pulse Oximeter] 64 64 64 Respiratory Rate 20 20 20 Blood Pressure [Ri ght Arm] 148/84 H 152/85 H Pulse Oximetry 97 96 Oxygen Delivery Me thod Room Air Room Air Oxygen Flow Rate 02/21/25 23:00 12/18/24 02:11 12/18/24 07:54 Temperature 98.8 F Pulse Rate [Right Pulse Oximeter] 68 Respiratory Rate 20 18 Blood Pressure [Ri ght Arm] 140/89 H Pulse Oximetry 96 94 95 Oxygen Delivery Me thod Room Air Room Air Room Air Oxygen Flow Rate 12/18/24 07:54 Temperature 97.4 F L Pulse Rate [Right Pulse Oximeter] 82 Respiratory Rate 18 Blood Pressure [Ri ght Arm] 139/93 H Pulse Oximetry 95 Oxygen Delivery Ny thod Room Air Oxygen Flow Rate DS: Data Data Completed and Pending Labs on day of discharge: Labs from last 24 hours 12/18/24 05:47 WBC 5.51 RBC 4.06 L Hgb 12.2 L Hct 37.3 MCV 92 MCH 30 MCHC 33 Plt Count 286 Sodium 135 Potassium 4.0 Chloride 103 Carbon Dioxide 27 Anion Gap 5 L BUN 12 Creatinine 1.0 Estimated Creat Clear 90.37 Estimated GFR 85 Glucose 121 H Calcium 8.2 L Preliminary micro results at discharge 12/15/24 15:03 Blood Culture - Preliminary Blood NO GROWTH AFTER 48 HOURS Discharge Plan Discharge Disposition: Home, Self-Care Date of Admission: 12/15/24 13:22 Consulting Providers: Jocelin Zuniga Primary Care Provider: Hilda Holland Condition: Improved Anticipated Discharge Date/Time: 12/18/24 11:04 Discharge Medications: New amoxicillin 875 mg tablet 875 mg PO BID Qty: 11 0RF Continued amoxicillin 500 mg capsule 2,000 mg PO ONCE atorvastatin 20 mg tablet 20 mg PO DAILY aspirin 81 mg tablet,delayed release (DR/EC) 81 mg PO DAILY zinc sulfate 50 mg zinc (220 mg) capsule 50 mg PO DAILY multivitamin Tablet 1 tab PO DAILY insulin glargine [Lantus Solostar U-100 Insulin] 100 unit/mL (3 mL) insulin pen 45 - 50 unit subcut QPM Ozempic 1 mg/dose (4 mg/3 mL) pen injector 1 mg subcut QWEEK Lyumjev KwikPen U-100 Insulin 100 unit/mL insulin pen 6 - 8 unit subcut QID Discharge Orders: Discharge Order (Routine); Ordered 12/18/24 Ordered By: Sharon Javier Patient Education: Amoxicillin (By mouth), Negative Pressure Wound Therapy (GEN), Incision and Drainage (DC) Additional Instructions: Wound care: -keep leg wrapped from the foot to knee during the day. Okay to remove to shower. -leave wound VAC in place until follow-up appointment on Friday at [facility]. -refer to troubleshooting guide provided with your wound VAC if the VAC begins to alarm. -if wound VAC is alarming during the night and you are unable to resolve it, okay to turn the wound VAC off and call the hospital in the morning for next steps. -you will either be instructed to return to have the wound VAC replaced or you will be instructed to remove the wound VAC and placed a gauze dressing in the wound. -if you are instructed to remove the wound VAC in place a gauze dressing, moisten the gauze with liquid in the blue bottle provided. Gently place in the wound and cover with gauze and tape. -elevate your leg to minimize swelling. Follow-up: -[facility] will call to give you an appointment to see Dr. Martel on Friday. -the wound clinical also be calling you to set up an appointment. This may be as soon as next week. Activity Level: Activity as Tolerated Activity Detail: Avoid prolonged standing greater than 30 minutes at a time this week. Elevate right leg. Discharge Diet: Diabetic Follow Up Appointments: [facility] [Provider Group] (within 14 days. The [facility] will call you with appointment date/time. [phone]) Hilda Holland DO [Primary Care Provider] - Melissa Martel MD [Staff Physician] - ([facility], Friday, 12/21. The clinic will call you with appointment time for Friday.) Forms: [employer] Info Instructions
== END 2024-12-18 11:48 | disposition home or self-care (01) | DRG 603 ==
PROVIDERS: Physician Assistant; Surgery; Admitting Provider Family Medicine; PCP Family Medicine; Visit Provider Family Medicine
PROC: 0J9N0ZZ Drainage of Right Lower Leg Subcutaneous Tissue and Fascia, Open Approach (ICD-10-PCS; principal; 2024-12-16 12:00)
DX: L03.115 Cellulitis of right lower limb (principal); Z68.41 Body mass index [BMI] 40.0-44.9, adult; S80.11XA Contusion of right lower leg, initial encounter; B95.4 Other streptococcus as the cause of diseases classified elsewhere; B96.89 Other specified bacterial agents as the cause of diseases classified elsewhere; E11.621 Type 2 diabetes mellitus with foot ulcer; L97.519 Non-pressure chronic ulcer of other part of right foot with unspecified severity; Z79.4 Long term (current) use of insulin; Z79.85 Long-term (current) use of injectable non-insulin antidiabetic drugs; E78.00 Pure hypercholesterolemia, unspecified; M17.12 Unilateral primary osteoarthritis, left knee; Z96.651 Presence of right artificial knee joint; E66.01 Morbid (severe) obesity due to excess calories
CPT/HCPCS: 00400; 36415; 80048; 80053; 82962; 85025; 85027; 86140; 87040; 87070; 87075; 87077; 87205; 93005; A9270; J1100; J1171; J1815; J1885; J2405; J2543; J2704; J3010; J3372; J3490; J7050

== ENCOUNTER 2024-12-22 12:36 | Outpatient (CLI) | payer OTHER, SELFPAY | END 2024-12-22 12:37 | disposition home or self-care (01) | LOC: WOUND 12:36 | PROVIDERS: PCP Family Medicine; Visit Provider Surgery | DX: S81.801A Unspecified open wound, right lower leg, initial encounter (principal); I89.0 Lymphedema, not elsewhere classified; E08.40 Diabetes mellitus due to underlying condition with diabetic neuropathy, unspecified; S91.104A Unspecified open wound of right lesser toe(s) without damage to nail, initial encounter; M20.41 Other hammer toe(s) (acquired), right foot; Z79.4 Long term (current) use of insulin; I87.8 Other specified disorders of veins | CPT/HCPCS: 97605; G0463 ==

== ENCOUNTER 2024-12-24 12:31 | Outpatient (CLI) | payer OTHER, SELFPAY | END 2024-12-24 12:32 | disposition home or self-care (01) | LOC: WOUND 12:31 | PROVIDERS: PCP Family Medicine; Visit Provider Surgery | DX: I87.311 Chronic venous hypertension (idiopathic) with ulcer of right lower extremity (principal); I89.0 Lymphedema, not elsewhere classified; E08.40 Diabetes mellitus due to underlying condition with diabetic neuropathy, unspecified; L97.812 Non-pressure chronic ulcer of other part of right lower leg with fat layer exposed; Z79.4 Long term (current) use of insulin | CPT/HCPCS: 97605 ==

== ENCOUNTER 2024-12-27 13:58 | Outpatient (CLI) | payer OTHER, SELFPAY | END 2024-12-27 13:59 | disposition home or self-care (01) | LOC: WOUND 13:58 | PROVIDERS: PCP Family Medicine; Visit Provider Surgery | DX: I87.311 Chronic venous hypertension (idiopathic) with ulcer of right lower extremity (principal); I89.0 Lymphedema, not elsewhere classified; L97.812 Non-pressure chronic ulcer of other part of right lower leg with fat layer exposed | CPT/HCPCS: 97605 ==

== ENCOUNTER 2024-12-29 12:31 | Outpatient (CLI) | payer OTHER, SELFPAY | END 2024-12-29 12:32 | disposition home or self-care (01) | LOC: WOUND 12:31 | PROVIDERS: PCP Family Medicine; Visit Provider Surgery | DX: I87.311 Chronic venous hypertension (idiopathic) with ulcer of right lower extremity (principal); I89.0 Lymphedema, not elsewhere classified; L97.815 Non-pressure chronic ulcer of other part of right lower leg with muscle involvement without evidence of necrosis; E08.40 Diabetes mellitus due to underlying condition with diabetic neuropathy, unspecified; Z79.4 Long term (current) use of insulin | CPT/HCPCS: 97597; 97605 ==

== ENCOUNTER 2024-12-31 12:50 | Outpatient (CLI) | payer OTHER, SELFPAY | END 2024-12-31 12:51 | disposition home or self-care (01) | LOC: WOUND 12:51 | PROVIDERS: PCP Family Medicine; Visit Provider Surgery | DX: I87.311 Chronic venous hypertension (idiopathic) with ulcer of right lower extremity (principal); I89.0 Lymphedema, not elsewhere classified; L97.815 Non-pressure chronic ulcer of other part of right lower leg with muscle involvement without evidence of necrosis | CPT/HCPCS: 97605 ==

== ENCOUNTER 2025-01-03 15:33 | Outpatient (CLI) | payer OTHER, SELFPAY | END 2025-01-03 15:34 | disposition home or self-care (01) | LOC: WOUND 15:33 | PROVIDERS: PCP Family Medicine; Visit Provider Surgery | DX: I87.311 Chronic venous hypertension (idiopathic) with ulcer of right lower extremity (principal); I89.0 Lymphedema, not elsewhere classified; L97.815 Non-pressure chronic ulcer of other part of right lower leg with muscle involvement without evidence of necrosis | CPT/HCPCS: 97605 ==

== ENCOUNTER 2025-01-05 12:45 | Outpatient (CLI) | payer OTHER, SELFPAY | END 2025-01-05 12:46 | disposition home or self-care (01) | LOC: WOUND 12:45 | PROVIDERS: PCP Family Medicine; Visit Provider Surgery | DX: I87.311 Chronic venous hypertension (idiopathic) with ulcer of right lower extremity (principal); I89.0 Lymphedema, not elsewhere classified; L97.818 Non-pressure chronic ulcer of other part of right lower leg with other specified severity; E11.621 Type 2 diabetes mellitus with foot ulcer; S91.104A Unspecified open wound of right lesser toe(s) without damage to nail, initial encounter; S81.801A Unspecified open wound, right lower leg, initial encounter; Z79.4 Long term (current) use of insulin | CPT/HCPCS: G0463 ==

== ENCOUNTER 2025-01-13 14:48 | Outpatient (CLI) | payer OTHER, SELFPAY | END 2025-01-13 14:49 | disposition home or self-care (01) | LOC: WOUND 14:48 | PROVIDERS: PCP Family Medicine; Visit Provider Nurse Practitioner Family | DX: I87.311 Chronic venous hypertension (idiopathic) with ulcer of right lower extremity (principal); I89.0 Lymphedema, not elsewhere classified; L97.812 Non-pressure chronic ulcer of other part of right lower leg with fat layer exposed; E11.621 Type 2 diabetes mellitus with foot ulcer; L97.511 Non-pressure chronic ulcer of other part of right foot limited to breakdown of skin; Z79.4 Long term (current) use of insulin | CPT/HCPCS: 11042; 97597 ==

== ENCOUNTER 2025-01-19 12:44 | Outpatient (CLI) | payer OTHER, SELFPAY | END 2025-01-19 12:45 | disposition home or self-care (01) | LOC: WOUND 12:44 | PROVIDERS: PCP Family Medicine; Visit Provider Family Medicine | DX: I87.311 Chronic venous hypertension (idiopathic) with ulcer of right lower extremity (principal); I89.0 Lymphedema, not elsewhere classified; L97.812 Non-pressure chronic ulcer of other part of right lower leg with fat layer exposed; E11.621 Type 2 diabetes mellitus with foot ulcer; L97.512 Non-pressure chronic ulcer of other part of right foot with fat layer exposed; Z79.4 Long term (current) use of insulin | CPT/HCPCS: 11042 ==

== ENCOUNTER 2025-01-26 12:53 | Outpatient (CLI) | payer OTHER, SELFPAY | END 2025-01-26 12:54 | disposition home or self-care (01) | LOC: WOUND 12:53 | PROVIDERS: PCP Family Medicine; Visit Provider Surgery | DX: E11.621 Type 2 diabetes mellitus with foot ulcer (principal); L97.512 Non-pressure chronic ulcer of other part of right foot with fat layer exposed; I87.311 Chronic venous hypertension (idiopathic) with ulcer of right lower extremity; I89.0 Lymphedema, not elsewhere classified; L97.812 Non-pressure chronic ulcer of other part of right lower leg with fat layer exposed; Z79.4 Long term (current) use of insulin | CPT/HCPCS: 17250; 87070; 87186; 97597 ==

== ENCOUNTER 2025-02-02 12:39 | Outpatient (CLI) | payer OTHER, SELFPAY | END 2025-02-02 12:40 | disposition home or self-care (01) | LOC: WOUND 12:39 | PROVIDERS: PCP Family Medicine; Visit Provider Surgery | DX: E11.621 Type 2 diabetes mellitus with foot ulcer (principal); L97.512 Non-pressure chronic ulcer of other part of right foot with fat layer exposed; L03.031 Cellulitis of right toe; B95.62 Methicillin resistant Staphylococcus aureus infection as the cause of diseases classified elsewhere; Z79.4 Long term (current) use of insulin | CPT/HCPCS: 97597 ==

== ENCOUNTER 2025-02-09 12:48 | Outpatient (CLI) | payer OTHER, SELFPAY | END 2025-02-09 12:49 | disposition home or self-care (01) | PROVIDERS: PCP Family Medicine; Visit Provider Surgery | DX: I87.311 Chronic venous hypertension (idiopathic) with ulcer of right lower extremity (principal); I89.0 Lymphedema, not elsewhere classified; L97.818 Non-pressure chronic ulcer of other part of right lower leg with other specified severity | CPT/HCPCS: 15271; C5271; Q4102 ==

== ENCOUNTER 2025-02-16 12:42 | Outpatient (CLI) | payer OTHER, SELFPAY | END 2025-02-16 12:43 | disposition home or self-care (01) | LOC: WOUND 12:42 | PROVIDERS: PCP Family Medicine; Visit Provider Surgery | DX: E11.621 Type 2 diabetes mellitus with foot ulcer (principal); L97.512 Non-pressure chronic ulcer of other part of right foot with fat layer exposed; S81.811A Laceration without foreign body, right lower leg, initial encounter; I89.0 Lymphedema, not elsewhere classified; Z79.4 Long term (current) use of insulin | CPT/HCPCS: G0463 ==

== ENCOUNTER 2025-02-23 12:18 | Outpatient (CLI) | payer OTHER, SELFPAY ==
--- NOTE | 2025-02-23 13:30 | CRLHL7_ITS ---
For Patients: As a result of the Cures Act, medical imaging exams and procedure reports are released immediately into your electronic medical record. You may view this report before your referring provider. If you have questions, please contact your health care provider. Indication: Right foot ulcer. Technique: Two views of the right foot. Comparison: None. Findings: There is swelling of the forefoot soft tissues. No radiopaque foreign body is identified. Bone density is normal. No periosteal reaction, bone destruction or erosion is identified to indicate osteomyelitis. No fracture or osteonecrosis is seen. Moderate-sized calcaneal spurs. Mild degenerative changes within the joints throughout the foot. Impression: No radiographic evidence of osteomyelitis identified. Dictated by Alber Banegas MD @ 02/24/2025 10:21:00 AM (Electronically Signed)
== END 2025-02-23 12:19 | disposition home or self-care (01) ==
PROVIDERS: PCP Family Medicine; Visit Provider Surgery
DX: E11.621 Type 2 diabetes mellitus with foot ulcer (principal); I89.0 Lymphedema, not elsewhere classified; L97.515 Non-pressure chronic ulcer of other part of right foot with muscle involvement without evidence of necrosis; L03.031 Cellulitis of right toe; S81.811A Laceration without foreign body, right lower leg, initial encounter; Z79.4 Long term (current) use of insulin
CPT/HCPCS: 73620; 87070; 97597

== ENCOUNTER 2025-03-02 12:38 | Outpatient (CLI) | payer OTHER, SELFPAY | END 2025-03-02 12:39 | disposition home or self-care (01) | LOC: WOUND 12:38 | PROVIDERS: PCP Family Medicine; Visit Provider Surgery | DX: E11.621 Type 2 diabetes mellitus with foot ulcer (principal); L97.518 Non-pressure chronic ulcer of other part of right foot with other specified severity; Z79.4 Long term (current) use of insulin | CPT/HCPCS: 97597 ==

== ENCOUNTER 2025-03-09 12:40 | Outpatient (CLI) | payer OTHER, SELFPAY | END 2025-03-09 12:41 | disposition home or self-care (01) | LOC: WOUND 12:40 | PROVIDERS: PCP Family Medicine; Visit Provider Surgery | DX: I89.0 Lymphedema, not elsewhere classified (principal); I87.301 Chronic venous hypertension (idiopathic) without complications of right lower extremity; E08.40 Diabetes mellitus due to underlying condition with diabetic neuropathy, unspecified; Z86.31 Personal history of diabetic foot ulcer; Z79.4 Long term (current) use of insulin | CPT/HCPCS: G0463 ==

== ENCOUNTER 2025-04-19 13:05 | Outpatient (CLI) | payer OTHER, SELFPAY | END 2025-04-19 13:06 | disposition home or self-care (01) | LOC: WOUND 13:05 | PROVIDERS: PCP Family Medicine; Visit Provider Physician Assistant Surgical | DX: E11.621 Type 2 diabetes mellitus with foot ulcer (principal); I89.0 Lymphedema, not elsewhere classified; L97.512 Non-pressure chronic ulcer of other part of right foot with fat layer exposed; L97.522 Non-pressure chronic ulcer of other part of left foot with fat layer exposed; Z79.4 Long term (current) use of insulin | CPT/HCPCS: 11042; G0463 ==

== ENCOUNTER 2025-04-26 13:15 | Outpatient (CLI) | payer OTHER, SELFPAY | END 2025-04-26 13:16 | disposition home or self-care (01) | LOC: WOUND 13:15 | PROVIDERS: PCP Family Medicine; Visit Provider Physician Assistant Surgical | DX: E11.621 Type 2 diabetes mellitus with foot ulcer (principal); I89.0 Lymphedema, not elsewhere classified; L97.522 Non-pressure chronic ulcer of other part of left foot with fat layer exposed; L97.512 Non-pressure chronic ulcer of other part of right foot with fat layer exposed; Z79.4 Long term (current) use of insulin | CPT/HCPCS: 11042 ==

== ENCOUNTER 2025-05-03 13:09 | Outpatient (CLI) | payer OTHER, SELFPAY | END 2025-05-03 13:10 | disposition home or self-care (01) | LOC: WOUND 13:09 | PROVIDERS: PCP Family Medicine; Visit Provider Family Medicine | DX: E11.621 Type 2 diabetes mellitus with foot ulcer (principal); I89.0 Lymphedema, not elsewhere classified; L97.522 Non-pressure chronic ulcer of other part of left foot with fat layer exposed; Z79.4 Long term (current) use of insulin | CPT/HCPCS: 11042 ==

== ENCOUNTER 2025-05-10 10:36 | Outpatient (CLI) | payer OTHER, SELFPAY | END 2025-05-10 10:37 | disposition home or self-care (01) | LOC: WOUND 10:36 | PROVIDERS: PCP Family Medicine; Visit Provider Nurse Practitioner Family | DX: E11.621 Type 2 diabetes mellitus with foot ulcer (principal); I89.0 Lymphedema, not elsewhere classified; L97.522 Non-pressure chronic ulcer of other part of left foot with fat layer exposed; Z79.4 Long term (current) use of insulin | CPT/HCPCS: 97597 ==

== ENCOUNTER 2025-05-17 09:42 | Outpatient (CLI) | payer OTHER, SELFPAY ==
[2025-05-17 10:33] LABS: Hematocrit 44.4 % (37.0-53.0); Hemoglobin* 14.8 gm/dL (13.5-17.5); Immature Granulocytes Abs Auto 0.01 K/uL (0.00-0.30); Immature Granulocytes Pct Auto 0.1 %; Lymphocytes Absolute Auto 2.45 K/uL (0.90-2.90); Mean Corpuscular HGB Conc 33 gm/dL (32-36); Mean Corpuscular Hemoglobin 30 pg (26-34); Mean Corpuscular Volume 90 fL (80-100); RDW Coefficient of Variation % 12.2 % (11.5-15.5); Red Blood Count 4.94 m/uL (4.30-5.90); White Blood Count* 7.23 K/uL (4.50-11.00)
[2025-05-17 10:34] LABS: Slide Review Reflex No
[2025-05-17 11:15] LABS: Erythrocyte SedimentationRate* 18 mm/hr (2-15)
== END 2025-05-17 09:43 | disposition home or self-care (01) ==
LOC: WOUND 09:42
PROVIDERS: PCP Family Medicine; Visit Provider Nurse Practitioner Family
DX: E11.621 Type 2 diabetes mellitus with foot ulcer (principal); E11.40 Type 2 diabetes mellitus with diabetic neuropathy, unspecified; I89.0 Lymphedema, not elsewhere classified; L97.522 Non-pressure chronic ulcer of other part of left foot with fat layer exposed; Z79.4 Long term (current) use of insulin
CPT/HCPCS: 11042; 36415; 85025; 85651; 86140

== ENCOUNTER 2025-05-24 13:06 | Outpatient (CLI) | payer OTHER, SELFPAY ==
--- NOTE | 2025-05-24 14:00 | CRLHL7_ITS ---
For Patients: As a result of the Century Cures Act, medical imaging exams and procedure reports are released immediately into your electronic medical record. You may view this report before your referring provider. If you have questions, please contact your health care provider. Indication: Diabetic foot ulcer. Technique: Three views of the left foot. Comparison: None. Findings: Partial flexion of the lesser toes limits evaluation. There is soft tissue swelling and irregularity of the great toe. Overlying bandage material obscures detail. There does appear to be irregularity of the tuft of the distal phalanx which is suspicious for osteomyelitis. Small heel spur. There are punctate radiopaque densities along the lateral aspect of the foot, some of which appear to be external to the patient and favored to be artifactual. Impression: 1. Soft tissue swelling and irregularity of the great toe. Bandage material obscures detail. Subtle irregularity of the tuft of the distal phalanx may represent osteomyelitis. Dictated by Kulwant Larry MD @ 05/26/2025 8:51:00 AM (Electronically Signed)
== END 2025-05-24 13:07 | disposition home or self-care (01) ==
PROVIDERS: PCP Family Medicine; Visit Provider Nurse Practitioner Family
DX: E11.621 Type 2 diabetes mellitus with foot ulcer (principal); I89.0 Lymphedema, not elsewhere classified; L97.522 Non-pressure chronic ulcer of other part of left foot with fat layer exposed; Z79.4 Long term (current) use of insulin
CPT/HCPCS: 11042; 73630; G0463

== ENCOUNTER 2025-05-31 13:04 | Outpatient (CLI) | payer OTHER, SELFPAY | END 2025-05-31 13:05 | disposition home or self-care (01) | LOC: WOUND 13:05 | PROVIDERS: PCP Family Medicine; Visit Provider Nurse Practitioner Family | DX: E11.621 Type 2 diabetes mellitus with foot ulcer (principal); I89.0 Lymphedema, not elsewhere classified; L97.522 Non-pressure chronic ulcer of other part of left foot with fat layer exposed; Z79.4 Long term (current) use of insulin | CPT/HCPCS: 11042 ==

== ENCOUNTER 2025-06-07 12:10 | Outpatient (CLI) | payer OTHER, SELFPAY | END 2025-06-07 12:11 | disposition home or self-care (01) | LOC: WOUND 12:10 | PROVIDERS: PCP Family Medicine; Visit Provider Nurse Practitioner Family | DX: E11.621 Type 2 diabetes mellitus with foot ulcer (principal); M86.172 Other acute osteomyelitis, left ankle and foot; I89.0 Lymphedema, not elsewhere classified; L97.522 Non-pressure chronic ulcer of other part of left foot with fat layer exposed; Z79.4 Long term (current) use of insulin | CPT/HCPCS: 11042; 73720; A9575 ==

== ENCOUNTER 2025-06-14 12:45 | Outpatient (CLI) | payer OTHER, SELFPAY | END 2025-06-14 12:46 | disposition home or self-care (01) | LOC: WOUND 12:45 | PROVIDERS: PCP Family Medicine; Visit Provider Nurse Practitioner Family | DX: E11.621 Type 2 diabetes mellitus with foot ulcer (principal); M86.172 Other acute osteomyelitis, left ankle and foot; I89.0 Lymphedema, not elsewhere classified; L97.526 Non-pressure chronic ulcer of other part of left foot with bone involvement without evidence of necrosis; Z79.4 Long term (current) use of insulin | CPT/HCPCS: 11042 ==

== ENCOUNTER 2025-06-20 09:18 | Outpatient (CLI) | payer OTHER, SELFPAY | END 2025-06-20 09:19 | disposition home or self-care (01) | LOC: WOUND 09:18 | PROVIDERS: PCP Family Medicine; Visit Provider Family Medicine | DX: E11.621 Type 2 diabetes mellitus with foot ulcer (principal); E11.40 Type 2 diabetes mellitus with diabetic neuropathy, unspecified; M86.172 Other acute osteomyelitis, left ankle and foot; I89.0 Lymphedema, not elsewhere classified; L97.526 Non-pressure chronic ulcer of other part of left foot with bone involvement without evidence of necrosis; Z79.4 Long term (current) use of insulin | CPT/HCPCS: G0463 ==

== ENCOUNTER 2025-06-21 10:24 | Outpatient (CLI) | payer OTHER, SELFPAY | END 2025-06-21 10:25 | disposition home or self-care (01) | LOC: WOUND 10:24 | PROVIDERS: PCP Family Medicine; Visit Provider Nurse Practitioner Family | DX: E11.621 Type 2 diabetes mellitus with foot ulcer (principal); M86.172 Other acute osteomyelitis, left ankle and foot; I89.0 Lymphedema, not elsewhere classified; L97.526 Non-pressure chronic ulcer of other part of left foot with bone involvement without evidence of necrosis; Z79.4 Long term (current) use of insulin | CPT/HCPCS: 11042; 82962; G0277 ==

== ENCOUNTER 2025-06-24 10:30 | Outpatient (RCR) | payer OTHER, SELFPAY | END 2025-06-26 23:59 | disposition home or self-care (01) | LOC: WOUND 10:30 | PROVIDERS: PCP Family Medicine; Visit Provider Nurse Practitioner Family | DX: E11.621 Type 2 diabetes mellitus with foot ulcer (principal); I89.0 Lymphedema, not elsewhere classified; L97.526 Non-pressure chronic ulcer of other part of left foot with bone involvement without evidence of necrosis; M86.172 Other acute osteomyelitis, left ankle and foot; Z79.4 Long term (current) use of insulin | CPT/HCPCS: 82962; G0277; G0463 ==

== ENCOUNTER 2025-06-28 10:15 | Outpatient (CLI) | payer OTHER, SELFPAY | END 2025-06-28 10:16 | disposition home or self-care (01) | LOC: WOUND 10:16 | PROVIDERS: PCP Family Medicine; Visit Provider Nurse Practitioner Family | DX: E11.621 Type 2 diabetes mellitus with foot ulcer (principal); M86.172 Other acute osteomyelitis, left ankle and foot; L97.526 Non-pressure chronic ulcer of other part of left foot with bone involvement without evidence of necrosis; I89.0 Lymphedema, not elsewhere classified; Z79.4 Long term (current) use of insulin | CPT/HCPCS: 11042; 82962; G0277 ==

== ENCOUNTER 2025-07-05 10:23 | Outpatient (CLI) | payer OTHER, SELFPAY | END 2025-07-05 10:24 | disposition home or self-care (01) | LOC: WOUND 10:23 | PROVIDERS: PCP Family Medicine; Visit Provider Nurse Practitioner Family | DX: E11.621 Type 2 diabetes mellitus with foot ulcer (principal); E11.40 Type 2 diabetes mellitus with diabetic neuropathy, unspecified; M86.172 Other acute osteomyelitis, left ankle and foot; L97.526 Non-pressure chronic ulcer of other part of left foot with bone involvement without evidence of necrosis; I89.0 Lymphedema, not elsewhere classified; Z79.4 Long term (current) use of insulin | CPT/HCPCS: 11042; 82962; G0277 ==

== ENCOUNTER 2025-07-13 08:50 | Outpatient (CLI) | payer OTHER, SELFPAY | END 2025-07-13 08:51 | disposition home or self-care (01) | LOC: WOUND 08:50 | PROVIDERS: PCP Family Medicine; Visit Provider Nurse Practitioner Family | DX: E11.621 Type 2 diabetes mellitus with foot ulcer (principal); M86.172 Other acute osteomyelitis, left ankle and foot; I89.0 Lymphedema, not elsewhere classified; L97.526 Non-pressure chronic ulcer of other part of left foot with bone involvement without evidence of necrosis; Z79.4 Long term (current) use of insulin | CPT/HCPCS: 11042 ==

== ENCOUNTER 2025-07-19 10:27 | Outpatient (CLI) | payer OTHER, SELFPAY ==
[2025-07-19 13:22] LABS: Hematocrit* 39.6 % (37.0-53.0); Hemoglobin* 13.3 gm/dL (13.5-17.5); Immature Granulocytes Abs Auto 0.01 K/uL (0.00-0.30); Immature Granulocytes Pct Auto 0.1 %; Lymphocytes Absolute Auto 1.83 K/uL (0.90-2.90); Mean Corpuscular HGB Conc 34 gm/dL (32-36); Mean Corpuscular Hemoglobin 30 pg (26-34); Mean Corpuscular Volume 88 fL (80-100); RDW Coefficient of Variation % 13.5 % (11.5-15.5); Red Blood Count* 4.48 m/uL (4.30-5.90); White Blood Count* 6.86 K/uL (4.50-11.00)
[2025-07-19 13:30] LABS: Slide Review Reflex No
[2025-07-19 13:47] LABS: Chloride* 104 mmol/L (96-114); Potassium* 4.0 mmol/L (3.6-5.1); Sodium* 137 mmol/L (135-149)
[2025-07-19 13:51] LABS: Anion Gap 5 mEq/L (7-15); Blood Urea Nitrogen* 14 mg/dL (7-30); Calcium* 8.7 mg/dL (8.4-10.6); Carbon Dioxide* 28 mmol/L (20-32); Creatinine* 0.9 mg/dL (0.5-1.5); Estimated Glomerular Filt Rate 96 ml/min; Glucose* 156 mg/dL (60-115)
[2025-07-19 14:54] LABS: Erythrocyte SedimentationRate* 12 mm/hr (2-15)
== END 2025-07-19 10:28 | disposition home or self-care (01) ==
LOC: WOUND 10:28
PROVIDERS: PCP Family Medicine; Visit Provider Nurse Practitioner Family
DX: E11.621 Type 2 diabetes mellitus with foot ulcer (principal); E11.40 Type 2 diabetes mellitus with diabetic neuropathy, unspecified; M86.172 Other acute osteomyelitis, left ankle and foot; I89.0 Lymphedema, not elsewhere classified; L97.522 Non-pressure chronic ulcer of other part of left foot with fat layer exposed; Z79.4 Long term (current) use of insulin
CPT/HCPCS: 11042; 36415; 80048; 82962; 85025; 85651; 86140; G0277

== ENCOUNTER 2025-07-25 10:30 | Outpatient (RCR) | payer OTHER, SELFPAY | END 2025-07-26 23:59 | disposition home or self-care (01) | LOC: WOUND 10:30 | PROVIDERS: PCP Family Medicine; Visit Provider Nurse Practitioner Family | DX: E11.621 Type 2 diabetes mellitus with foot ulcer (principal); L97.526 Non-pressure chronic ulcer of other part of left foot with bone involvement without evidence of necrosis; Z79.4 Long term (current) use of insulin | CPT/HCPCS: 82962; G0277; G0463 ==

== ENCOUNTER 2025-07-26 10:21 | Outpatient (CLI) | payer OTHER, SELFPAY | END 2025-07-26 10:22 | disposition home or self-care (01) | LOC: WOUND 10:21 | PROVIDERS: PCP Family Medicine; Visit Provider Nurse Practitioner Family | DX: E11.621 Type 2 diabetes mellitus with foot ulcer (principal); M86.172 Other acute osteomyelitis, left ankle and foot; I89.0 Lymphedema, not elsewhere classified; L97.526 Non-pressure chronic ulcer of other part of left foot with bone involvement without evidence of necrosis; Z79.4 Long term (current) use of insulin | CPT/HCPCS: 11042; 82962; G0277 ==

== ENCOUNTER 2025-08-02 10:21 | Outpatient (CLI) | payer OTHER, SELFPAY | END 2025-08-02 10:22 | disposition home or self-care (01) | LOC: WOUND 10:21 | PROVIDERS: PCP Family Medicine; Visit Provider Nurse Practitioner Family | DX: E11.621 Type 2 diabetes mellitus with foot ulcer (principal); M86.172 Other acute osteomyelitis, left ankle and foot; L97.526 Non-pressure chronic ulcer of other part of left foot with bone involvement without evidence of necrosis; I89.0 Lymphedema, not elsewhere classified; Z79.4 Long term (current) use of insulin | CPT/HCPCS: 11042 ==

== ENCOUNTER 2025-08-10 13:00 | Outpatient (CLI) | payer OTHER, SELFPAY ==
--- NOTE | 2025-08-10 12:45 | CRLHL7_ITS ---
For Patients: As a result of the Century Cures Act, medical imaging exams and procedure reports are released immediately into your electronic medical record. You may view this report before your referring provider. If you have questions, please contact your health care provider. INDICATION: Cough. Wheezing. COMPARISON: None TECHNIQUE: PA and lateral views of the chest were acquired FINDINGS: TUBES AND LINES: None. HEART AND MEDIASTINUM: The heart size is normal. The mediastinal contour appears normal for patient age. LUNGS AND PLEURAL SPACES: The lungs appear normal.The pleural spaces are unremarkable. OSSEOUS STRUCTURES: Age-appropriate appearance. No acute focal finding. IMPRESSION: No evidence of active pulmonary disease. Dictated by Manuel Baker MD @ 08/11/2025 11:49:40 AM (Electronically Signed)
== END 2025-08-10 13:01 | disposition home or self-care (01) ==
LOC: RAD 13:01
PROVIDERS: PCP Family Medicine; Visit Provider Nurse Practitioner Family
DX: J06.9 Acute upper respiratory infection, unspecified (principal)
CPT/HCPCS: 71046

== ENCOUNTER 2025-08-11 10:05 | Outpatient (CLI) | payer OTHER, SELFPAY ==
[2025-08-11 12:56] LABS: Hematocrit* 38.7 % (37.0-53.0); Hemoglobin* 12.9 gm/dL (13.5-17.5); Immature Granulocytes Abs Auto 0.01 K/uL (0.00-0.30); Immature Granulocytes Pct Auto 0.1 %; Lymphocytes Absolute Auto 2.26 K/uL (0.90-2.90); Mean Corpuscular HGB Conc 33 gm/dL (32-36); Mean Corpuscular Hemoglobin 30 pg (26-34); Mean Corpuscular Volume 89 fL (80-100); RDW Coefficient of Variation % 13.2 % (11.5-15.5); Red Blood Count* 4.34 m/uL (4.30-5.90); White Blood Count* 7.92 K/uL (4.50-11.00)
[2025-08-11 12:59] LABS: Slide Review Reflex No
[2025-08-11 13:09] LABS: Chloride* 101 mmol/L (96-114); Potassium* 4.2 mmol/L (3.6-5.1); Sodium* 135 mmol/L (135-149)
[2025-08-11 13:12] LABS: Anion Gap 7 mEq/L (7-15); Blood Urea Nitrogen* 13 mg/dL (7-30); Calcium* 8.7 mg/dL (8.4-10.6); Carbon Dioxide* 27 mmol/L (20-32); Creatinine* 1.0 mg/dL (0.5-1.5); Estimated Glomerular Filt Rate 85 ml/min; Glucose* 126 mg/dL (60-115)
[2025-08-11 13:58] LABS: Erythrocyte SedimentationRate* 16 mm/hr (2-15)
== END 2025-08-11 10:06 | disposition home or self-care (01) ==
LOC: WOUND 10:05
PROVIDERS: PCP Family Medicine; Visit Provider Nurse Practitioner Family
DX: E11.621 Type 2 diabetes mellitus with foot ulcer (principal); M86.172 Other acute osteomyelitis, left ankle and foot; L97.526 Non-pressure chronic ulcer of other part of left foot with bone involvement without evidence of necrosis; I89.0 Lymphedema, not elsewhere classified; Z79.4 Long term (current) use of insulin
CPT/HCPCS: 11042; 36415; 80048; 82962; 85025; 85651; 86140; 87070; 87186; G0277

== ENCOUNTER 2025-08-15 10:30 | Outpatient (RCR) | payer OTHER, SELFPAY | END 2025-08-26 23:59 | disposition home or self-care (01) | LOC: WOUND 10:30 | PROVIDERS: PCP Family Medicine; Visit Provider Nurse Practitioner Family | DX: E11.621 Type 2 diabetes mellitus with foot ulcer (principal); M86.172 Other acute osteomyelitis, left ankle and foot; L97.526 Non-pressure chronic ulcer of other part of left foot with bone involvement without evidence of necrosis; I89.0 Lymphedema, not elsewhere classified; Z79.4 Long term (current) use of insulin | CPT/HCPCS: 71046; 82962; G0277; G0463 ==

== ENCOUNTER 2025-08-16 10:22 | Outpatient (CLI) | payer OTHER, SELFPAY | END 2025-08-16 10:23 | disposition home or self-care (01) | LOC: WOUND 10:22 | PROVIDERS: PCP Family Medicine; Visit Provider Nurse Practitioner Family | DX: E11.621 Type 2 diabetes mellitus with foot ulcer (principal); M86.172 Other acute osteomyelitis, left ankle and foot; L97.526 Non-pressure chronic ulcer of other part of left foot with bone involvement without evidence of necrosis; I89.0 Lymphedema, not elsewhere classified; Z79.4 Long term (current) use of insulin | CPT/HCPCS: 11042; 82962; G0277 ==

== ENCOUNTER 2025-08-23 12:34 | Outpatient (CLI) | payer OTHER, SELFPAY | END 2025-08-23 12:35 | disposition home or self-care (01) | LOC: WOUND 12:34 | PROVIDERS: PCP Family Medicine; Visit Provider Nurse Practitioner Family | DX: E11.621 Type 2 diabetes mellitus with foot ulcer (principal); M86.172 Other acute osteomyelitis, left ankle and foot; L97.526 Non-pressure chronic ulcer of other part of left foot with bone involvement without evidence of necrosis; I89.0 Lymphedema, not elsewhere classified; Z79.4 Long term (current) use of insulin | CPT/HCPCS: 11042 ==

== ENCOUNTER 2025-08-30 12:35 | Outpatient (CLI) | payer OTHER, SELFPAY | END 2025-08-30 12:36 | disposition home or self-care (01) | LOC: WOUND 12:36 | PROVIDERS: PCP Family Medicine; Visit Provider Nurse Practitioner Family | DX: E11.621 Type 2 diabetes mellitus with foot ulcer (principal); I89.0 Lymphedema, not elsewhere classified; L97.522 Non-pressure chronic ulcer of other part of left foot with fat layer exposed; E11.40 Type 2 diabetes mellitus with diabetic neuropathy, unspecified; Z79.4 Long term (current) use of insulin | CPT/HCPCS: 11042 ==

== ENCOUNTER 2025-09-06 12:33 | Outpatient (CLI) | payer OTHER, SELFPAY | END 2025-09-06 12:34 | disposition home or self-care (01) | LOC: WOUND 12:33 | PROVIDERS: PCP Family Medicine; Visit Provider Nurse Practitioner Family | DX: E11.621 Type 2 diabetes mellitus with foot ulcer (principal); L97.522 Non-pressure chronic ulcer of other part of left foot with fat layer exposed; E11.40 Type 2 diabetes mellitus with diabetic neuropathy, unspecified; Z79.4 Long term (current) use of insulin | CPT/HCPCS: 11042 ==

== ENCOUNTER 2025-09-13 12:39 | Outpatient (CLI) | payer OTHER, SELFPAY | END 2025-09-13 12:40 | disposition home or self-care (01) | LOC: WOUND 12:39 | PROVIDERS: PCP Family Medicine; Visit Provider Nurse Practitioner Family | DX: E11.621 Type 2 diabetes mellitus with foot ulcer (principal); L97.522 Non-pressure chronic ulcer of other part of left foot with fat layer exposed; E11.40 Type 2 diabetes mellitus with diabetic neuropathy, unspecified; Z79.4 Long term (current) use of insulin | CPT/HCPCS: 11042 ==

== ENCOUNTER 2025-09-20 12:27 | Outpatient (CLI) | payer OTHER, SELFPAY | END 2025-09-20 12:28 | disposition home or self-care (01) | LOC: WOUND 12:27 | PROVIDERS: PCP Family Medicine; Visit Provider Nurse Practitioner Family | DX: E11.621 Type 2 diabetes mellitus with foot ulcer (principal); L97.522 Non-pressure chronic ulcer of other part of left foot with fat layer exposed; E11.40 Type 2 diabetes mellitus with diabetic neuropathy, unspecified; Z79.4 Long term (current) use of insulin | CPT/HCPCS: 11042 ==

== ENCOUNTER 2025-09-27 12:22 | Outpatient (CLI) | payer OTHER, SELFPAY | END 2025-09-27 12:23 | disposition home or self-care (01) | LOC: WOUND 12:22 | PROVIDERS: PCP Family Medicine; Visit Provider Nurse Practitioner Family | DX: E11.621 Type 2 diabetes mellitus with foot ulcer (principal); L97.522 Non-pressure chronic ulcer of other part of left foot with fat layer exposed; E11.40 Type 2 diabetes mellitus with diabetic neuropathy, unspecified; Z79.4 Long term (current) use of insulin | CPT/HCPCS: 11042 ==

== ENCOUNTER 2025-10-04 12:28 | Outpatient (CLI) | payer OTHER, SELFPAY | END 2025-10-04 12:29 | disposition home or self-care (01) | LOC: WOUND 12:28 | PROVIDERS: PCP Family Medicine; Visit Provider Nurse Practitioner Family | DX: E11.621 Type 2 diabetes mellitus with foot ulcer (principal); I89.0 Lymphedema, not elsewhere classified; L97.522 Non-pressure chronic ulcer of other part of left foot with fat layer exposed; Z79.4 Long term (current) use of insulin; E11.40 Type 2 diabetes mellitus with diabetic neuropathy, unspecified | CPT/HCPCS: 11042 ==

== ENCOUNTER 2025-10-11 12:22 | Outpatient (CLI) | payer OTHER, SELFPAY | END 2025-10-11 12:23 | disposition home or self-care (01) | LOC: WOUND 12:22 | PROVIDERS: PCP Family Medicine; Visit Provider Nurse Practitioner Family | DX: E11.621 Type 2 diabetes mellitus with foot ulcer (principal); I89.0 Lymphedema, not elsewhere classified; L97.522 Non-pressure chronic ulcer of other part of left foot with fat layer exposed; Z79.4 Long term (current) use of insulin; E11.40 Type 2 diabetes mellitus with diabetic neuropathy, unspecified | CPT/HCPCS: 97597 ==

== ENCOUNTER 2025-10-18 11:57 | Outpatient (CLI) | payer OTHER, SELFPAY | END 2025-10-18 11:58 | disposition home or self-care (01) | LOC: WOUND 11:57 | PROVIDERS: PCP Family Medicine; Visit Provider Nurse Practitioner Family | DX: E11.621 Type 2 diabetes mellitus with foot ulcer (principal); E11.40 Type 2 diabetes mellitus with diabetic neuropathy, unspecified; I89.0 Lymphedema, not elsewhere classified; L97.522 Non-pressure chronic ulcer of other part of left foot with fat layer exposed; Z79.4 Long term (current) use of insulin | CPT/HCPCS: 11042 ==